=== PATIENT | male | born 1945 | race Caucasian/White ===

== ENCOUNTER 2023-03-18 07:57 | Observation (INO) ==
--- NOTE | 2023-03-10 13:02 | Anesthesiology Consultation ---
Date of Service March 10, 2023 Assessment & Plan (1) Encounter for pre-operative examination: Chart Review Chart Review: Acceptable Risk for Surgery and Patient NOT seen in Pre Admission Testing -Infectious Disease screening: Per PAT nursing assessment on 03/10/23. No known infectious disease contacts in past 10 days or current infectious disease symptoms. No recent travel outside the country. History Surgery Operation Date: 03/18/23 08:50 Proposed Procedures p Robotic Laparoscopic Assisted Radical Retropubic Prostatectomy Possible Open, Possible Pelvic Lymph Node Dissection - Fam Hutton MD Height/Weight Height: 6 ft 1.5 in Weight: 98.883 kg Allergies Allergy/AdvReac Type Severity Reaction Status Date / Time Penicillins Allergy Severe as a Verified 03/10/23 12:13 child> difficulty breathing Medications Home Medications Medication Instructions Recorded Confirmed Last Taken albuterol 90 mcg/actuation aerosol 90 mcg inhalation UD PRN sob 09/13/22 03/10/23 Unknown inhaler aspirin 81 mg tablet,delayed 81 mg PO QAM 09/13/22 03/10/23 Unknown release (Adult Aspirin Regimen) cetirizine 10 mg tablet (All Day 10 mg PO DAILY PRN allergy relief 09/13/22 03/10/23 Unknown Allergy (cetirizine)) cholecalciferol (vitamin D3) 25 25 mcg PO QAM 09/13/22 03/10/23 Unknown mcg (1,000 unit) capsule collagen (bovine) 100 % topical 1 applic topical DAILY 09/13/22 03/10/23 Unknown powder cyanocobalamin (vitamin B-12) 1,000 mcg PO QAM 09/13/22 03/10/23 Unknown 1,000 mcg capsule hydrocortisone 2.5 % topical cream 1 applic [place] DAILY PRN Rash 09/13/22 03/10/23 Unknown with perineal applicator ketoconazole 2 % topical cream 1 applic topical DAILY PRN Rash 09/13/22 03/10/23 Unknown propylene glycol 0.6 % eye drops 1 drp ophthalmic (eye) DAILY PRN 09/13/22 03/10/23 Unknown Dry Eyes rosuvastatin 5 mg tablet 5 mg PO HS 09/13/22 03/10/23 Unknown tamsulosin 0.4 mg capsule 0.4 mg PO HS 09/13/22 03/10/23 Unknown triamterene 37.5 1 cap PO QAM 09/13/22 03/10/23 Unknown mg-hydrochlorothiazide 25 mg capsule sildenafil (pulm.hypertension) 20 20 mg PO HS 03/07/23 03/10/23 Unknown mg tablet Past Medical History Medical History (Updated 03/10/23 @ 13:05 by Cary Cabezas PA-C) Asthma more seasonal, uses res inh approx 2x per year BPH (benign prostatic hyperplasia) DVT (deep venous thrombosis) > Left leg, from injury, thinner OR'ed, no issues since Environmental allergies Hyperlipidemia Hypertension Peyronie's disease Prediabetes Per PCP records Prostate cancer PVC (premature ventricular contraction) hx of > no issues Subclinical hypothyroidism Per PCP records- TSH 4.24; Free T4 WNL at 1.3 in 07/2022 Past Family History Family History Father Heart disease Diabetes Past Surgical History Surgical History History of arthroscopy bilat knees History of colonoscopy History of tonsillectomy History of tooth extraction Social History Smoking Status: Never smoker Do You Dip or Chew Tobacco: No Hx Alcohol Use: Yes Alcohol type: beer and hard liquor alcohol intake frequency: a few times a week Hx Substance Use: No substance use type: does not use Lab Results Anesthesia Preop Results Results Anesthesia Widget: WBC 6.30 K/ul (4.8-10.8) 02/26/23 Hgb 14.8 g/dl (14.0-18.0) 02/26/23 Hct 44.7 % (42.0-52.0) 02/26/23 Plt 173 K/uL (130-400) 02/26/23 Na 142 mmol/L (136-145) 02/26/23 K 3.9 mmol/L (3.5-5.1) 02/26/23 Cl 105 mmol/L (98-107) 02/26/23 CO2 30 mmol/L (21-32) 02/26/23 BUN 21 mg/dl (6-23) 02/26/23 Creat 1.17 mg/dl (0.6-1.4) 02/26/23 Glucose Level 100 mg/dl (70-99(Fasting)) H 02/26/23 Testing Laboratory Results 02/26/23= UA: Negative URINE CULTURE: No growth- less than 1000 colonies/ml Electrocardiogram Date: 02/26/23 SR with 1st degree AVB with PACs at 74bpm Left ventricular hypertrophy Chest X-Ray Date: 02/26/23 FINDINGS: A PA chest radiograph is obtained. No prior studies are available for comparison at the time of dictation. The heart is mildly enlarged noting atherosclerotic calcification of the thoracic aorta. The pulmonary vasculature is noncongested. There is minimal bibasilar scarring/atelectasis. The lungs and pleural spaces are otherwise clear. No pneumothorax is seen. The skeletal structures are osteopenic. The bony thorax is grossly intact. Degenerative change is noted in the spine. IMPRESSION: Mild cardiomegaly with no active disease in the chest
[~2023-03-18 07:57] MED LIST: CLINDAMYCIN/D5W 900 MG/50 ML BAG IV SCH; LR 15ML/HR IV SCH; Patient's ALLERGY Info needs ENTERED SCH
[2023-03-18] MEDS ORDERED: HEPARIN SOD 5,000 UNIT/0.5 ML VIAL ONE (09:09)
[2023-03-18] MEDS ORDERED: BUPIVACAINE 0.5 % 5 MG/1 ML MPF 30ML VIAL ONE (09:31)
--- NOTE | 2023-03-18 09:34 | History & Physical Bridge Note ---
Date of Service March 18, 2023 History & Physical Bridge Note I have examined the patient, reviewed the History & Physical and in the interval since the performance of the History & Physical I have noted the following changes of clinical significance: no changes noted
[2023-03-18] MEDS ORDERED: CLINDAMYCIN 600 MG/D5W 50 ML BAG IV ONE (09:45)
[2023-03-18] MEDS ORDERED: CLINDAMYCIN 300 MG/D5W 50 ML BAG IV ONE (09:45)
[2023-03-18] MEDS ORDERED: ROCURONIUM BROMIDE 10 MG/ML 5 ML VIAL IV ONE ×2 (09:55→11:16)
[2023-03-18] MEDS ORDERED: PROPOFOL IV EMULSION 10 MG/ML 20 ML VIAL IV ONE (09:55)
[2023-03-18] MEDS ORDERED: MIDAZOLAM HCL 1 MG/ML 2ML VIAL ONE (09:55)
[2023-03-18] MEDS ORDERED: LIDOCAINE 2% 2 ML VIAL/AMP(20MG/ML) INFIL ONE (09:55)
[2023-03-18] MEDS ORDERED: fentaNYL citrate PF 100 MCG/2 ML VIAL ONE ×2 (09:55→11:00)
[2023-03-18] MEDS ORDERED: 300mg Preop IV SCH (10:05)
[2023-03-18] MEDS ORDERED: 600mg Preop IV SCH (10:05)
[2023-03-18] MEDS ORDERED: ePHEDrine sulfate 50 MG/ML AMP ONE (11:05)
[2023-03-18] MEDS ORDERED: SURGICEL ABSORB HEMOSTAT 2IN X 14IN TOP ONE (11:35)
[2023-03-18] MEDS ORDERED: FLOSEAL HEMOSTATIC MATRIX 10ML TOP ONE (11:35)
[2023-03-18] MEDS ORDERED: LABETALOL HCL IV 5 MG/ML 20ML IV PRN (11:52)
[2023-03-18] MEDS ORDERED: NALOXONE HCL 0.4 MG/1 ML VIAL/CARP IV PRN (11:52)
[2023-03-18] MEDS ORDERED: FLUMAZENIL 0.1 MG/1 ML 10 ML VIAL IV PRN (11:52)
[2023-03-18] MEDS ORDERED: HYDROmorphone INJ 1 MG/ML SYRINGE IV PRN (11:52)
[2023-03-18] MEDS ORDERED: fentaNYL citrate PF 100 MCG/2 ML VIAL IV PRN (11:52)
[2023-03-18] MEDS ORDERED: ePHEDrine sulfate 50 MG/ML AMP IV PRN (11:52)
[2023-03-18] MEDS ORDERED: ONDANSETRON INJ 2 MG/ML 2 ML VIAL IV PRN ×2 (11:52→14:31)
[2023-03-18] MEDS ORDERED: PROMETHAZINE HCL 12.5 MG in SODIUM CHLORIDE 0.9% 50 ML IV PRN (11:52)
[2023-03-18] MEDS ORDERED: ATROPINE SULFATE 0.1 MG/ML 10ML SYR IV PRN (11:52)
[2023-03-18] MEDS ORDERED: KETAMINE 50 MG/5 ML SYRINGE ONE (11:57)
[2023-03-18] MEDS ORDERED: SUGAMMADEX SODIUM 200 MG/2 ML VIAL IV ONE (12:53)
--- NOTE | 2023-03-18 13:07 | Operative Report ---
PG Post Operative Report Pre & Post Diagnosis Operation Date: 03/18/23 09:50 Pre-Op Diagnosis: Prostate Cancer Post-Op Diagnosis: Prostate Cancer I identified the patient and participated in the time-out.: Yes Procedure Operation Date: 03/18/23 09:50 Actual Procedures p Robotic Assisted Laparoscopic Radical Retropubic Prostatectomy with Pelvic Lymph Node and Periprostatic Fat Dissection(Not Applicable) - Fam Hutton MD Surgeon Fam Hutton MD Treating Plant Pumper Elise Quiles Estimated Blood Loss 50 Findings Consistent with Post-Op Diagnosis Specimens 1. Periprostatic fat 2. Left pelvic lymph nodes 3. Right pelvic lymph nodes 4. Prostate and seminal vesicles Description of Procedure The patient was identified in the preoperative holding area, appropriate informed consents were reviewed and completed, and he was transported to the operating suite. Subcutaneous heparin was administered in the pre-operative holding area. Upon arrival in the operating suite, he received appropriate antibiotics and general anesthesia. He was positioned in dorsal lithotomy, a B&O suppository was inserted after digital rectal exam, and he was prepped and draped in standard fashion. A Griffiths catheter was inserted in the sterile field. A Veress needle was passed per umbilicus with uniform insufflation of the abdomen to 15mmHg. He was placed in steep Trendelenburg position. A periumbilical incision was then made to accommodate a 12mm Visiport with 10mm 0degree laparoscope. Inspection of the abdomen was carried out, and there was no evidence of traumatic entry or injury secondary to the Veress needle. After confirming a clear anterior abdominal wall, ports were subsequently placed in standard robotic prostatectomy fashion without incident. To begin the robotic portion of the case, the left lateral aspect of the sigmoid was mobilized off of the left pelvic side wall to allow the pouch of Sourav to be appropriately visualized. I then made an incision in the pouch of Sourav, overlying the seminal vesicles. Both SVs as well as the ampullae of the vasa were entirely dissected, with the vasa transected 3cm from the prostate. The medial umbilical ligaments were then controlled with bipolar electrocautery just inferior to the umbilicus. Following cauterization, they were divided utilizing monopolar cautery. A peritoneal incision was carried from this location to the medial aspect of the internal inguinal rings bilaterally with care to avoid opening through the ring. This incision was concluded when the vas deferens was reached. Dissection of the bladder and prostate off of the posterior aspect of the pubic arch was completed allowing full visualization of the prostate. The fat overlying the prostate was removed en bloc and passed off the table as a specimen labeled "periprostatic fat". The endopelvic fascia was cleared during this portion of the procedure, and subsequently opened - first on the right and then the left. The incision through the endopelvic fascia began near the prostate-bladder junction and was carried to the apex with extreme care to preserve all lateral levator musculature as well as the periurethral musculature and sphincter complex. I additionally preserved the puboprostatic ligaments. I then controlled the DVC with a 3-0 V-lock suture in overlappi ng/figure of 8 fashion. The lymph node dissection was then conducted. External iliac vessels were identified on the pelvic side wall. The packet of fat and lymphatic tissue that resides just under the iliac vein was elevated and off of the vein with a split and roll technique. The packet was dissected laterally to the circumflex vein and distally to the obturator nerve which was preserved. The proximal aspect of the packet was carried towards the bifurcation of the iliac vessels. A combination of monopolar and bipolar cautery were used to assist with control. After completing the dissection on both sides, the packets were collected and passed off of the table as specimens labeled "pelvic lymph nodes". My attention then returned to the prostate, with identification of the bladder neck aided by gentle traction on the Griffiths catheter and lateral to medial pressure at the presumed level of the bladder neck with the robotic instruments. An anterior cystotomy was made, the Griffiths balloon deflated and the catheter guided through the incision to allow anterior retraction. I attempted to preserve maximal bladder neck musculature as I circumferentially dissected around the bladder neck. After incision through the posterior aspect of the mucosa, the dissection was carried through detrusor muscle until the bilateral ampullae of the vasa were identified. The previously dissected vasa and SVs were brought through the incision and used to elevated the prostate anteriorly. A posterior plane behind the prostate was then developed - splitting Denonvilliers's fascia. This dissection was carried as far as possible towards the apex as well as far as possible laterally. An incision in the lateral prostatic fascia was then made bilaterally to facilitate control of the vascular pedicles and preservation of the nerve bundles. Vasculature running along the posterior/lateral aspect of the prostate was preserved as well as the tissue containing the nerves. Of note, we did take a more aggressive nerve sparing path on the right and the left based on his biopsy pathology. The pedicles were then controlled with a series of Weck clips. The apical attachments of the prostate were remaining at that stage. The DVC was divided after control with bipolar cautery over the prostate. Continuous inspection from anterior and lateral views allowed me to closely follow the apical contour of the prostate and maximally preserve urethral length and tissue. The prostate was entirely freed at that point, and collected in an EndoCatch bag before being moved out of the field of vision. Hemostasis was confirmed and anastomosis of the bladder and urethra was completed utilizing a double armed V- Lock stitch. A new Griffiths catheter was inserted and the anastomosis tested with irrigation. There was no evidence of leak. A bridgette style stitch was placed bilaterally to functionally marsupialize the area of the lymph node dissection. The robot was undocked, the specimen extracted through expansion of the liang- umbilical camera port. The fascia was closed with a series of 0-PDS figure of 8 stitches. The right communications assistant port was closed in two layers - with a figure of 8 0-Vicryl to reapproximate the fascia followed by 4-0 Monocryl to close the skin. Monocryl was used to close all other skin incisions. All wounds were dressed with Dermabond. The case was concluded and the patient taken to the PACU in stable condition. Elise Quiles assisted from incision to closure. There were no complications I attest to the content of the Intraoperative Record and any orders documented therein. Any exceptions are noted below.
[2023-03-18] MEDS ORDERED: HYDROmorphone INJ 2 MG/ML SYR/VIAL ONE (13:15)
[2023-03-18 13:46] LABS: Basophils # (auto) 0.03 K/uL (0.00-0.20); Basophils % (auto) 0.3 %; Eosinophils # (auto) 0.09 K/uL (0.00-0.50); Hematocrit (blood only) 39.7 % (42.0-52.0); Hemoglobin 13.3 g/dl (14.0-18.0); Immature Granulocytes # (auto) 0.04 K/uL (0.01-0.20); Immature Granulocytes % (auto) 0.4 %; Lymphocytes # (auto) 0.72 K/uL (1.20-3.40); Mean Corpuscular Hgb Conc 33.5 g/dL (32.0-36.0); Mean Corpuscular Volume 89.4 fL (80.0-100.0); Mean Platelet Volume 11.1 fL (9.4-12.4); Monocytes % (auto) 2.2 %; Neutrophils # (auto) 7.92 K/uL (1.40-6.50); Neutrophils % (auto) 88.1 %; Platelet Count 146 K/uL (130-400); RDW Coefficient of Variation 14.4 % (11.5-14.5); RDW Standard Deviation 46.9 fL (36.4-46.3); Red Blood Count 4.44 M/uL (4.70-6.10)
[2023-03-18 14:04] LABS: BUN Creatinine Ratio 13.9 (10-20); Calcium 8.3 mg/dl (8.6-10.3); Creatinine Clr Calc Pharmacy 73.3 ml/min; Est GFR (African American) 77.4 ml/min; Est GFR (Non-African American) 66.8 ml/min; Potassium 3.6 mmol/L (3.5-5.1)
--- NOTE | 2023-03-18 14:26 | Anesthesiology Progress Note ---
Date of Service March 18, 2023 Anesthesia Post Procedure Vital Signs Vital Signs: Temp Pulse Resp BP Pulse Ox O2 Del Method O2 Flow Rate 03/18/23 14:15 83 12 143/80 H 94 Nasal Cannula 4 03/18/23 14:00 36.3 C L 85 12 143/73 H 96 Nasal Cannula 4 03/18/23 13:50 81 12 143/76 H 93 Nasal Cannula 4 03/18/23 13:30 83 19 135/78 94 Oxymask 10 03/18/23 13:40 83 16 138/78 94 Nasal Cannula 4 03/18/23 13:20 36.7 C 84 12 140/71 92 Oxymask 10 03/18/23 08:42 36.8 C 83 18 149/87 H 96 Room Air Pain Intensity Abdomen: Pain Intensity: 4 Transfer of Care Handoff Completed per policy Notes Mental Status: alert / awake / arousable Patient Amnestic to Procedure: Yes Nausea / Vomiting: adequately controlled Pain: adequately controlled Airway Patency, RR, SpO2: stable & adequate BP & HR: stable & adequate Hydration State: stable & adequate Anesthetic Complications: no major complications apparent
[2023-03-18] MEDS ORDERED: MoRPHine SULFATE 2 MG/ML CARP IV PRN (14:31)
[2023-03-18] MEDS ORDERED: MoRPHine SULFATE 4 MG/ML 1 ML CARP\\VIAL IV PRN (14:31)
[2023-03-18] MEDS ORDERED: oxyCODONE HCL IR 5 MG TAB (IMMEDIATE RELEASE) PO PRN ×2 (14:31)
[2023-03-18] MEDS: LACTATED RINGER'S 1,000 ML IV SCH ×2 (14:44→23:57)
[2023-03-18] MEDS: ALLERGY Noted to ORDERED Medication SCH ×2 (15:37→15:38)
[2023-03-18] MEDS: ACETAMINOPHEN 325 MG TAB PO SCH ×2 (17:15→21:22)
[2023-03-18] MEDS: CLINDAMYCIN/D5W 600 MG/50 ML BAG IV SCH (18:06)
[2023-03-18] MEDS: HEPARIN SOD 5,000 UNIT/0.5 ML VIAL SQ SCH (20:21)
[2023-03-18] MEDS: DOCUSATE SODIUM 100 MG CAP PO SCH (20:21)
[2023-03-18] MEDS ORDERED: ROSUVASTATIN CALCIUM 5 MG TAB PO SCH (21:00)
[2023-03-18] MEDS ORDERED: MELATONIN 3 MG TAB PO PRN (21:36)
[2023-03-19] MEDS: CLINDAMYCIN/D5W 600 MG/50 ML BAG IV SCH (02:23)
[2023-03-19] MEDS: ACETAMINOPHEN 325 MG TAB PO SCH ×2 (02:26→09:24)
--- NOTE | 2023-03-19 08:03 | Urology Progress Note ---
Date of Service March 19, 2023 Assessment & Plan (1) Prostate cancer: Plan Postop day #1 status post robotic prostatectomy Recovery on pace now Labs pending Ambulate Plan for discharge home later this morning Admission and Anticipated Discharge Date Admission Date: March 18, 2023 Subjective No major issues overnight Abdomen is soft Is been out of bed His pain is as expected No nausea or vomiting Physical Exam Physical Exam: Incisions appropriate, abdomen soft Urine clear Results & Data Vital Signs (Past 12 Hours) Vital Signs Temp Pulse Resp BP Pulse Ox O2 Del Method 03/19/23 07:01 37.0 C 95 H 18 145/78 H 94 Room Air 03/19/23 03:01 36.9 C 99 H 16 146/83 H 93 Room Air 03/18/23 23:14 37.1 C 104 H 16 145/77 H 93 Room Air 03/18/23 21:01 Room Air PG Care Time/CCT Total # of Minutes Spent Total Time Spent with Patient: Total time spent is greater than 50% in coordination of care (as documented) at patient's floor/unit and/or counseling patient: Coding Level of Care Code None Diagnoses Prostate cancer C61
[2023-03-19 08:36] LABS: Basophils # (auto) 0.01 K/uL (0.00-0.20); Basophils % (auto) 0.1 %; Eosinophils # (auto) 0.01 K/uL (0.00-0.50); Eosinophils % (auto) 0.1 %; Hematocrit (blood only) 40.7 % (42.0-52.0); Hemoglobin 13.8 g/dl (14.0-18.0); Immature Granulocytes # (auto) 0.02 K/uL (0.01-0.20); Immature Granulocytes % (auto) 0.2 %; Lymphocytes # (auto) 0.74 K/uL (1.20-3.40); Lymphocytes % (auto) 7.9 %; Mean Corpuscular Hemoglobin 30.1 pg (25.0-34.0); Mean Corpuscular Hgb Conc 33.9 g/dL (32.0-36.0); Mean Corpuscular Volume 88.7 fL (80.0-100.0); Mean Platelet Volume 11.2 fL (9.4-12.4); Monocytes # (auto) 0.85 K/uL (0.11-0.59); Monocytes % (auto) 9.1 %; Neutrophils # (auto) 7.69 K/uL (1.40-6.50); Neutrophils % (auto) 82.6 %; Platelet Count 170 K/uL (130-400); RDW Coefficient of Variation 14.8 % (11.5-14.5); RDW Standard Deviation 47.5 fL (36.4-46.3); Red Blood Count 4.59 M/uL (4.70-6.10); White Blood Count 9.32 K/ul (4.8-10.8)
[2023-03-19 08:59] LABS: BUN Creatinine Ratio 14.3 (10-20); Calcium 8.7 mg/dl (8.6-10.3); Creatinine Clr Calc Pharmacy 66.5 ml/min; Est GFR (African American) 68.8 ml/min; Est GFR (Non-African American) 59.4 ml/min
[2023-03-19] MEDS ORDERED: TRIAMTERENE/HCTZ 37.5/25MG CAP PO SCH (09:00)
[2023-03-19] MEDS ORDERED: ALBUTEROL HFA 8 GM INHALER INH PRN (09:00)
[2023-03-19] MEDS ORDERED: ASPIRIN 81 MG ECTAB PO SCH (09:00)
[2023-03-19] MEDS: DOCUSATE SODIUM 100 MG CAP PO SCH (09:24)
[2023-03-19] MEDS: HEPARIN SOD 5,000 UNIT/0.5 ML VIAL SQ SCH (09:26)
--- NOTE | 2023-03-19 10:36 | Discharge Summary ---
Date of Service March 19, 2023 Admission HPI Per Admitting Provider Patient with prostate cancer here for scheduled Robotic Assisted Laparoscopic Radical Retropubic Prostatectomy Admission Exam Per Admitting Provider Constitutional well developed and well nourished Neck neck nontender Respiratory normal respiratory effort; no respiratory distress and does not use accessory muscles Cardiovascular Rate/Rhythm: regular rate Vessels: radial pulses present Extremities: no edema Gastrointestinal (Abdomen) Inspection/Auscultation: abdomen normal to inspection Percussion/Palpation: abdomen soft; abdomen nontender and no guarding Musculoskeletal Head/Neck/Chest: normocephalic and head atraumatic Extremities: extremities normal to inspection Skin no rashes and no lesions Trauma: no evidence of skin trauma Neurologic awake; not obtunded Speech / Cognition: normal speech Motor/Sensory: no tremor Psychiatric Orientation: alert and oriented x 3 Genitourinary no CVA tenderness Lymphatic no lymphadenopathy Principal Diagnosis Prostate Cancer Discharge Exam General: well-appearing, no acute distress HEENT: Normocephalic, mucous membranes moist Pulmonary: Nonlabored respirations Abdomen: Nondistended Extremities: Moves all 4 spontaneously Neuro: No gross deficits Psych: alert and oriented, normal mood Skin: incisions C/D/I : Griffiths patent and draining clear yellow urine Discharge Data Allergies Allergy/AdvReac Type Severity Reaction Status Date / Time Penicillins Allergy Severe as a Verified 03/18/23 08:35 child> difficulty breathing Procedures Performed Operation Date: 03/18/23 09:50 Actual Procedures p Robotic Assisted Laparoscopic Radical Retropubic Prostatectomy with Pelvic Lymph Node and Periprostatic Fat Dissection(Not Applicable) - Fam Hutton MD Hospital Course (1) Prostate cancer: Plan Postop day #1 status post robotic prostatectomy Recovery on pace now Labs pending Ambulate Plan for discharge home later this morning Patient reassessed midmorning. He is doing well, tolerated regular diet for breakfast. He is up into the chair and is planning to ambulate in hallway shortly. Labs reviewedcreatinine normal, no leukocytosis, hemoglobin stable. present. Expected clinical course reviewed, all questions answered. Patient is ready for discharge to home after ambulating. Discharge with Griffiths catheter. Follow-up appointments in place. Total Time Total Time Spent Total Time Spent (In Minutes): 29 Discharge Plan Discharge Items Patient Disposition: Home - Self-Care Reason For Visit: Prostate Cancer Discharge Diagnosis: Prostate cancer Activity: Per Instructions section Lifting: No more than 25 pounds Bathing Comment: Okay to shower after discharge, no tub bath or soaking Sexual Activity: Wait until after follow-up appointment Exercise/Sports: Wait until after follow-up appointment Driving/Machine Use: No driving while taking prescription pain medication Non-emergency contact: Surgeon and Urologist Call non-emergency contact if: your pain is not controlled, you have a fever, your temperature is above 101, your wound has increased redness, your wound has increased drainage and your wound pain has increased Follow-up/Referrals: Fam Hutton MD [Physician] - 04/02/23 10:00 am Justin Hernandez DO [Primary Care Provider] - Urology,Nurse [FAKE FOR SCHEDULES] - 03/24/23 9:00 am Diet: Regular Addtl Attending Provider Instructions: Please take all medications as prescribed and keep all follow-ups as scheduled. Please call our office at [phone] with any questions, concerns or need to reschedule appointments for any reason. We are happy to assist you. We have sent an antibiotic to your pharmacy of choice. Please begin antibiotic as prescribed the day BEFORE your scheduled voiding trial at [facility]. Please continue antibiotic every 12 hours through the day AFTER your voiding trial. Activity: We recommend having someone with you for the first few days after surgery to help care for you. For the first 2 weeks after surgery, we would like you to get up and walk around your house. However, we recommend limit physical activity that would increase your heart rate. This will allow your body to rest and heal. Take naps if you feel tired. Don't lift anything heavier than 10 pounds, mow the law or ride a bicycle until your follow-up appointment. Please avoid long car rides. Home Care: Unless directed otherwise, drink 6 to 8 glasses of water a day (enough to keep your urine light colored). This will also help keep a healthy flow of urine. We recommend using a stool softener for the first two weeks to avoid constipation. Griffiths Catheter or Suprapubic Catheter care: Keep the catheter well secured with either a leg back or leg strap with large bag. Empty your bag when it's about half full. You may notice some blood in the bag. This is normal after surgery and while the catheter is in place. Use mild soap (such as Dove or Dial) and water to wash the catheter and the head of your penis daily, or more frequently if needed. Return to your normal diet, we encourage good protein intake to promote healing. You may shower as normal. Please avoid tub baths or soaking until catheter removed and incisions well healed. Wearing sweat pants while you have the catheter is recommended, they will be more comfortable. Follow-up Your follow up appointments for having your catheter removed, and follow up with your physician should already be scheduled. If you have any questions regarding this, please contact our office. Your final pathology report will be discussed at your physician follow-up appointment. Call [facility] at [phone] right away if you have any of the following: Chest pain or trouble breathing (call [phone] or go to the hospital) Fever of 101F or higher, uncontrolled vomiting Heavy bleeding, clots, or bright red blood from the catheter Catheter that falls out or stops draining Foul-smelling discharge from your catheter Redness, swelling, warmth, or increased pain at your incision site Drainage, pus, or bleeding from your incision Pending Studies at Discharge: Yes Studies:: pathology Stand-Alone Forms: My [facility], Pain - Opioid Pain Management, Smoking Cessation Medications and DC Order Prescriptions: New ciprofloxacin HCl 500 mg tablet 500 mg PO BID Qty: 6 0RF Rx Instructions: start 1 day prior to catheter removal oxycodone-acetaminophen [Percocet] 5-325 mg tablet 1 tab PO TID PRN (Reason: pain) Qty: 7 0RF docusate sodium [Colace] 100 mg capsule 100 mg PO BID Qty: 60 0RF Rx Instructions: Take twice daily for 2 weeks, then as needed for constipation. Continued triamterene-hydrochlorothiazid 37.5-25 mg capsule 1 cap PO QAM collagen (bovine) 100 % powder 1 applic topical DAILY Rx Instructions: apply a 1/4 inches inch thick layer, do not pack tightly; cover using a non- adherent dressing propylene glycol 0.6 % drops 1 drp ophthalmic (eye) DAILY PRN (Reason: Dry Eyes) rosuvastatin 5 mg tablet 5 mg PO HS albuterol 90 mcg/actuation aerosol 90 mcg inhalation UD PRN (Reason: sob) ketoconazole 2 % cream 1 applic topical DAILY PRN (Reason: Rash) hydrocortisone 2.5 % cream with perineal applicator 1 applic [place] DAILY PRN (Reason: Rash) cyanocobalamin (vitamin B-12) 1,000 mcg capsule 1,000 mcg PO QAM cholecalciferol (vitamin D3) 25 mcg (1,000 unit) capsule 25 mcg PO QAM aspirin [Adult Aspirin Regimen] 81 mg tablet,delayed release (DR/EC) 81 mg PO QAM cetirizine [All Day Allergy (cetirizine)] 10 mg tablet 10 mg PO DAILY PRN (Reason: allergy relief) Held sildenafil (pulm.hypertension) [Revatio] 20 mg tablet 20 mg PO HS Hold Instructions: Resume on 04/02/23. Hold until f/u discussion with Dr. Hutton Rx Instructions: Take one tab one hour prior to intercourse on empty stomach. Can titrate up at separate times up to 100 mg Discontinued tamsulosin 0.4 mg capsule 0.4 mg PO HS Discharge Orders: Discharge Order (Routine); Ordered 03/19/23 Ordered By: Elise Clark/Other Patient Handouts: Indwelling Urinary Catheter Dc, Leg Bag Care Dc, Griffiths Catheter Male Admission Data Admit Date/Time: 03/18/23 13:13 Attending Provider: Fam Hutton Admit Provider: Fam Hutton Primary Care Provider: Justin Hernandez Other Interventions: Discharge Summary Assessment (RN) Last Done: 03/19/23 11:56 Coding Level of Care Code 51085 IN/OBS DISCH 30 MIN/LESS Diagnoses Prostate cancer C61
== END 2023-03-19 13:15 | disposition home or self-care (01) ==
LOC: ASU 07:57 → 3N 13:13 → INTOOBSV 13:13